=== PATIENT | female | born 1960 | race Caucasian/White ===

== ENCOUNTER 2017-04-23 10:46 | Outpatient (CLI) | payer OTHER ==
--- NOTE | 2017-04-23 18:27 | MRI Report ---
EXAM: RIGHT KNEE MRI WITHOUT CONTRAST EXAM DATE: 04/23/2017 12:11 PM. CLINICAL HISTORY: SYNOVIAL CYST OF POPLITEAL SPACE (REED), RIGHT knee. COMPARISON: MR 10/10/2012. TECHNIQUE: Multiplanar, multisequence T1-weighted and fluid-sensitive sequences of the knee without c ontrast. Other: None. FINDINGS: Bones: Moderate osteophytes in all 3 compartments, unchanged. No fracture. Mild degenerative marrow e michele and subarticular cyst formation in the medial and lateral compartments. 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 Articular Cartilage: Grade 3 chondromalacia medial and lateral compartments has progressed since 2011 . Grade 4 chondromalacia patella, stable. Medial Meniscus: Partial degeneration posterior horn, stable. No displaced fragment. Lateral Meniscus: The lateral meniscus is intact. Cruciate Ligaments: The anterior and posterior cruciate ligaments are intact. Collateral Ligaments: The medial collateral and lateral collateral ligamentous structures are intact. Tendons: The quadriceps, patellar, semimembranosus, and popliteus tendons are unremarkable. Musculature: No edema or fatty atrophy. Other: Small joint effusion, stable. 1 x 4 cm small popliteal fossa cyst. No loose bodies. The media l and lateral retinacula are intact. Mild soft tissue edema. IMPRESSION: 1. Interval progression moderate 3 compartment degenerative joint disease. 2. Stable small 1 x 4 cm popliteal fossa cyst. [facility] MUSCULOSKELETAL RADIOLOGY SECTION Referring Provider Line: [phone] SITE ID: [id number]
== END 2017-04-23 10:47 | disposition home or self-care (01) ==
LOC: DI 10:46
PROVIDERS: ATTEND Nurse Practitioner Family
DX: M17.11 Unilateral primary osteoarthritis, right knee (principal); M71.21 Synovial cyst of popliteal space [Baker], right knee

== ENCOUNTER 2019-05-05 11:09 | Outpatient (CLI) | payer OTHER | END 2019-05-05 11:10 | disposition short-term general hospital (02) | LOC: EMS 11:09 | PROVIDERS: ATTEND Surgery | DX: R55 Syncope and collapse (principal); R42 Dizziness and giddiness; R20.0 Anesthesia of skin; R53.1 Weakness | CPT/HCPCS: A0425; A0429 ==

== ENCOUNTER 2020-02-27 09:09 | Outpatient (CLI) | payer OTHER ==
--- NOTE | 2020-02-27 14:54 | MRI Report ---
Reason: ABDOMEN PAIN Procedure Date: 02/27/2020 Accession Number: [id number] / [id number] Procedure: MRI - Lumbar Spine W/O CPT Code: Final Report FULL RESULT: EXAM: MRI LUMBAR SPINE WITHOUT CONTRAST EXAM DATE: 02/27/2020 10:45 AM. CLINICAL HISTORY: Low back pain. Pain from the lower right back to the anterior right lower quadrant exacerbated with bending. COMPARISON: None. TECHNIQUE: Multiplanar, multisequence T1-weighted and fluid-sensitive sequences of the lumbar spine from T12 to S1 without contrast. Other: None. FINDINGS: Spinal Canal: The conus terminates at T12-L1. The conus medullaris and cauda equina are unremarkable. Alignment: 7 mm anterior subluxation L4 on L5. Otherwise normal alignment. Approximately 17 degrees curvature convex right between L1 and L5. Bone Marrow: No acute fracture. Diskogenic endplate edema is most pronounced at the T11-T12 level, slightly less pronounced at L2-L3 and L5-S1. Predominantly fatty endplate changes at T10-T11. No destructive bone lesion. Disk Levels/Facets: T12-L1: Minimal disk bulge. No stenosis. L1-L2: Minimal disk bulge. No stenosis. L2-L3: Moderate disk height loss and dehydration. Annular disk bulge with broad-based foraminal protrusions and mild degenerative facet arthropathy. Mild bilateral inferior foraminal narrowing. L3-L4: Slight annular disk bulge and moderate degenerative facet arthropathy. No significant stenosis. L4-L5: Grade 1 degenerative spondylolisthesis. Annular disk bulge and uncovering of the disk. Moderate to severe bilateral degenerative facet arthropathy with ligamentum flavum buckling. Mild central canal stenosis. Mild left foraminal stenosis. L5-S1: Mild disk height loss and dehydration. Slight annular disk bulge. Mild degenerative facet arthropathy. Mild right foraminal narrowing. No significant stenosis. Musculature: Normal. No edema or fatty atrophy. Other: 1.3 cm high T2, mixed T1 signal lesion in the anterolateral left kidney may represent a hemorrhagic cyst. Partially visualized lower pole cyst 3.2 cm diameter. IMPRESSION: 1. L4-L5 grade 1 degenerative spondylolisthesis. Mild central canal stenosis and mild left foraminal stenosis. 2. Mild to moderate multilevel degenerative disk and facet arthropathy with no additional significant canal or foraminal stenosis. Comment: The following findings are so common in adults without low back pain that while we report their presence, they must be interpreted with caution and in the context of the clinical situation. (Reference Dawsonk et al, Spine 2001) Prevalence of findings in patients without low back pain: Disk degeneration (any evidence): 92% Disk desiccation/T2 signal loss: 83% Disk height loss: 56% Disk bulge: 64% Disk protrusion: 32% Annular tear/high intensity zone: 38% [facility]
--- NOTE | 2020-02-27 16:44 | MRI Report ---
Reason: ABDOMEN PAIN Procedure Date: 02/27/2020 Accession Number: [id number] / [id number] Procedure: MRI - Pelvis W/O CPT Code: Final Report FULL RESULT: EXAM: MRI PELVIS WITHOUT CONTRAST EXAM DATE: 02/27/2020 10:13 AM. CLINICAL HISTORY: Abdominal pain since 08/18/2019 that moves from the anterior right lower quadrant to the right back. COMPARISON: None. TECHNIQUE: Multiplanar, multisequence T1-weighted and fluid-sensitive sequences of the pelvis without contrast. Other: None. FINDINGS: Bones: No fractures or subluxations. No marrow edema or bone lesions. Sacroiliac Joints: No effusion or sacroiliitis. Right Hip: No acetabular retroversion. Femoral head-neck offset is within normal limits. No effusion. Left Hip: No acetabular retroversion. Femoral head-neck offset is within normal limits. No effusion. Symphysis Pubis: Unremarkable. Musculature: No edema or fatty atrophy. Pelvic Cavity: Normal uterus. Atrophic ovaries. Negative for abnormal adnexal mass. Bladder is negative for focal mass. Extensive sigmoid diverticulosis with no MR evidence for diverticulitis. Other: The visualized sciatic nerves are unremarkable. No bursitis. The subcutaneous tissues are unremarkable. Hips are within normal limits. Proximal hamstring tendons are normal. Negative for ischial femoral impingement. Trace fluid left subgluteal gluteus medius bursa. Lower spine: Anterolisthesis 5 mm L4 on L5. Moderate disk degeneration L4-L5. Severe L4-L5 facet hypertrophic arthropathy. Posterior 2 mm disk protrusion L4-L5 with mild central spinal canal stenosis. Mild left L4-L5 foraminal stenosis. IMPRESSION: Unremarkable MRI of low abdomen and pelvis. [facility]
== END 2020-02-27 09:10 | disposition home or self-care (01) ==
LOC: DI 09:09
PROVIDERS: ATTEND Family Medicine
DX: M51.36 Other intervertebral disc degeneration, lumbar region (principal); M47.816 Spondylosis without myelopathy or radiculopathy, lumbar region; M47.817 Spondylosis without myelopathy or radiculopathy, lumbosacral region; M51.37 Other intervertebral disc degeneration, lumbosacral region; M51.26 Other intervertebral disc displacement, lumbar region; M43.16 Spondylolisthesis, lumbar region
CPT/HCPCS: 72148; 72195

== ENCOUNTER 2023-02-04 19:50 | Emergency (ER) | payer OTHER ==
[2023-02-04 20:47] LABS: BASOPHILS % (AUTO) 0.1 %; EOSINOPHILS # (AUTO) 0.1 10^3/uL (0.0-0.7); EOSINOPHILS % (AUTO) 1.9 %; HCT - HEMATOCRIT 37.3 % (37.0-47.0); HGB - HEMOGLOBIN 12.8 g/dL (12.0-16.0); LYMPHOCYTES # (AUTO) 2.1 10^3/uL (1.5-3.5); LYMPHOCYTES % (AUTO) 30.4 %; MEAN CORPUSCULAR HEMOGLOBIN 31.8 pg (27.0-31.0); MEAN CORPUSCULAR HGB CONC 34.3 g/dL (32.0-36.0); MEAN CORPUSCULAR VOLUME 92.6 fL (81.0-99.0); MEAN PLATELET VOLUME 8.9 fL (7.9-10.8); MONOCYTES # (AUTO) 0.5 10^3/uL (0.0-1.0); MONOCYTES % (AUTO) 7.1 %; NEUTROPHILS # (AUTO) 4.1 10^3/uL (1.5-6.6); NEUTROPHILS % (AUTO) 60.2 %; PLT - PLATELET COUNT 232 10^3/uL (130-450); RED BLOOD COUNT 4.03 10^6/uL (4.20-5.40); RED CELL DISTRIBUTION WIDTH 11.8 % (12.0-15.0); WHITE BLOOD COUNT 6.8 x10^3/uL (4.8-10.8)
--- NOTE | 2023-02-04 20:49 | XRAY Report ---
PROCEDURE: Chest 1 View X-Ray INDICATIONS: Chest Pain TECHNIQUE: One view of the chest was acquired. COMPARISON: None. FINDINGS: Surgical changes and devices: None. Lungs and pleura: No pleural effusions or pneumothorax. Lungs are clear. Mediastinum: The aorta is prominent and tortuous. The cardiac contours are within normal limits. Bones and chest wall: No suspicious bony lesions. Age-appropriate degenerative changes are seen. O verlying soft tissues appear unremarkable. IMPRESSION: Portable chest within normal limits for age. Reviewed by: Yossi Guardado MD on 02/04/2023 7:48 PM [facility] Approved by: Yossi Guardado MD on 02/04/2023 7:48 PM [facility] Station ID: [id number]
--- NOTE | 2023-02-04 21:00 | ED Physician Documentation ---
History of Present Illness - Stated complaint Stated Complaint: ALLERGIC REACTION - Chief complaint Chief Complaint: Allergic Rx - Additonal information Additional information: 62-year-old female presents to the emergency department for concerns that she may be having an allergic reaction to the Flonase that she took this afternoon for eustachian tube dysfunction. She reports that for many months she has been having difficulty with her e ustachian tubes and has had vertigo associated with this. On the advice of her primary care provider she took a Zyrtec this morning about 10:00 and this afternoon to use the Flonase nasal spray. Shortly thereafter she began feeling lightheaded. She denies chest pain or shortness of air. She took her blood pressure at home and found it was 146/105. Reports this is very high for her as she typically runs in the low 100s. The patient is on metoprolol due to a history of ventricular tachycardia. She denies however a history of hypertension preceding. She does state that she often has bad side effects to medications. She does not present with findings of anaphylaxis, angioedema or hives. She is cardiovascularly stable. Review of Systems Constitutional: denies: Fever, Chills Ears: reports: Tinnitus/ringing Nose: reports: Congestion Throat: reports: Reviewed and negative Cardiac: denies: Chest pain / pressure, Palpitations Respiratory: denies: Dyspnea, Cough GI: reports: Reviewed and negative : reports: Reviewed and negative Skin: reports: Reviewed and negative Musculoskeletal: reports: Reviewed and negative PD PAST MEDICAL HISTORY - Allergies Allergies/Adverse Reactions: Allergies Allergy/AdvReac Type Severity Reaction Status Date / Time Penicillins Allergy Hives Verified 02/04/23 20:04 sulfamethoxazole Allergy Unknown Verified 02/04/23 20:04 [From ] trimethoprim [From ] Allergy Unknown Verified 02/04/23 20:04 PD ED PE NORMAL - General General: Alert and oriented X 3, No acute distress - HEENT HEENT: PERRL - Neck Neck: Supple, no meningeal sign, No adenopathy - Cardiac Cardiac: RRR, No murmur - Respiratory Respiratory: No respiratory distress, Clear bilaterally - Abdomen Abdomen: Normal bowel sounds, Soft, Non tender - Derm Derm: Normal color, Warm and dry - Extremities Extremities: No deformity - Neuro Neuro: Alert and oriented X 3, 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 Relevant findings are: Rate: Rate (enter#) (70) Rhythm: NSR [place]: Normal Intervals: Normal AL. No: Prolonged QT QRS: Normal Ischemia: Normal ST segments Compare to prior EKG: Old EKG unavailable Computer interpretation: Agree with computer - Labs Labs: Laboratory Tests 02/04/23 02/04/23 20:45 20:45 WBC 6.8 RBC 4.03 L Hgb 12.8 Hct 37.3 MCV 92.6 MCH 31.8 H MCHC 34.3 RDW 11.8 L Plt Count 232 MPV 8.9 Neut # (Auto) 4.1 Lymph # (Auto) 2.1 [place] # (Auto) 0.5 Eos # (Auto) 0.1 Baso # (Auto) 0.0 Absolute Nucleated RBC 0.00 Nucleated RBC % 0.0 Sodium 134 L Potassium 3.5 Chloride 102 Carbon Dioxide 24 Anion Gap 8.0 BUN 21 H Creatinine 0.8 Estimated GFR (MDRD) 72 L Glucose 97 Calcium 8.7 Total Bilirubin 0.6 AST 18 ALT 21 Alkaline Phosphatase 77 Total Protein 7.1 Albumin 4.0 Globulin 3.1 Albumin/Globulin Ratio 1.3 Lipase 40 - Rads (name of study) cxr Relevant Findings:: Final report received (no acute cardiopulmonary process) PD Medical Decision Making - ED course Complexity details: reviewed results, re-evaluated patient, considered differential, d/w patient ED course: 62-year-old female presents emergency department for evaluation of elevated blood pressure and feeling lightheaded after taking Flonase nasal spray which she was being taken for eustachian tube dysfunction. She is concerned because she never has blood pressure elevations that she did at home today. She denies chest pain and shortness of air. In the emergency department she appears remarkably well. Her EKG per my interpretation is nonischemic. Chest x-ray was without findings to suggest volume overload, cardiomegaly or pneumonia/pleural effusions. Her screening labs and electrolytes showed no acute worrisome findings though her BUN was mildly elevated. In addition to this her troponin had a very scant elevation at 18. With the finding of a mild BUN elevation we elected to give the patient a liter of IV fluids and recheck her troponin at 2300. Assuming no significant rise in the troponin I do not believe that this elevation is consistent with ACS and she will be stable for discharge home. She is to follow closely with her stoker installer as she may benefit from an outpatient echocardiogram and stress test. She reports an unremarkable one a few years ago. Clinically I do not believe that she is having an allergic reaction to the Zyrtec or Flonase. She was advised that she can take the Zyrtec tomorrow and if no adverse events attempt to take the Flonase the following day if again she has similar symptoms she will stop taking the Flonase. She may benefit from saline Nasal spray Patient will be signed out to my nighttime colleague Dr. Billings to follow-up on the 2300 troponin. Assuming no significant rise she was stable for discharge home Departure - Departure Clinical Impression: Elevated blood pressure reading without diagnosis of hypertension, Elevated troponin Condition: Stable Record reviewed to determine appropriate education?: Yes Comments: You came to the emergency department because you have concerns that you are having allergic reaction to the Flonase which she took noon for your eustachian tube dysfunction. The symptoms you discussed are not typical for an allergic reaction though they could be. Here in the emergency department we did obtain a chest x-ray which was normal for age. It showed no findings of pneumonia or volume overload. Your CBC and electrolytes also showed no worrisome findings. Your EKG was normal for age and did not show signs of having a heart attack. You do have an elevated blood pressure here in the emergency department. This may be secondary to stress anxiety or worry. I would recommend that you follow your blood pressures closely at home and discuss your concern of elevated blood pressures with your primary care doctor. We did noticed today that he had a mildly elevated troponin. This is a chemical that can be released by the heart during times of stress but it is also elevated in other conditions. Your EKG was normal and the elevation in your troponins did not make us worry about heart disease. However I would like you to discuss this ED visit as well as your mildly elevated troponins with your stoker installer at [facility]. They may elect to perform a second stress test. If at any point you develop chest pain having fainting episodes or severely short of air you should return immediately to the ER I think is okay to try taking the Zyrtec tomorrow. If you tolerate that well without any concerns of adverse reaction then the next day you can try the Zyrtec followed by the Flonase. If you have similar symptoms then I would discontinue further use of Flonase until you follow with your primary doctor. Saline nasal rinses can be helpful in reducing eustachian tube dysfunction and I would recommend this if you find you do not tolerate Flonase
[2023-02-04 21:06] LABS: ALBUMIN/GLOBULIN RATIO 1.3 (1.0-2.2); BILIRUBIN,TOTAL 0.6 mg/dL (0.2-1.0); CALCIUM 8.7 mg/dL (8.5-10.3); CREATININE 0.8 mg/dL (0.4-1.0); POTASSIUM 3.5 mmol/L (3.5-5.0); TOTAL PROTEIN 7.1 g/dL (6.7-8.2)
[2023-02-04] MEDS ORDERED: SODIUM CHLORIDE 0.9% 1,000 ML IV STA (21:36)
[2023-02-05 01:14] VITALS: BP 126/85
== END 2023-02-05 01:10 | disposition home or self-care (01) ==
LOC: ED 19:50
DX: R77.8 Other specified abnormalities of plasma proteins (principal); R03.0 Elevated blood-pressure reading, without diagnosis of hypertension; Z79.899 Other long term (current) drug therapy
CPT/HCPCS: 36415; 80053; 83690; 84484; 85025; 93005; 99283; 99284

== ENCOUNTER 2023-09-29 21:20 | Observation (INO) | payer OTHER ==
[2023-09-29 21:50] LABS: BASOPHILS % (AUTO) 0.1 %; EOSINOPHILS % (AUTO) 0.1 %; HCT - HEMATOCRIT 40.8 % (37.0-47.0); HGB - HEMOGLOBIN 13.6 g/dL (12.0-16.0); LYMPHOCYTES # (AUTO) 1.2 10^3/uL (1.5-3.5); LYMPHOCYTES % (AUTO) 17.3 %; MEAN CORPUSCULAR HEMOGLOBIN 30.6 pg (27.0-31.0); MEAN CORPUSCULAR HGB CONC 33.3 g/dL (32.0-36.0); MEAN CORPUSCULAR VOLUME 91.9 fL (81.0-99.0); MEAN PLATELET VOLUME 8.6 fL (7.9-10.8); MONOCYTES # (AUTO) 0.8 10^3/uL (0.0-1.0); NEUTROPHILS # (AUTO) 4.7 10^3/uL (1.5-6.6); NEUTROPHILS % (AUTO) 70.4 %; PLT - PLATELET COUNT 222 10^3/uL (130-450); RED BLOOD COUNT 4.44 10^6/uL (4.20-5.40); RED CELL DISTRIBUTION WIDTH 11.9 % (12.0-15.0); WHITE BLOOD COUNT 6.8 x10^3/uL (4.8-10.8)
[2023-09-29 22:05] LABS: ALBUMIN 4.6 g/dL (3.2-5.5); ALBUMIN/GLOBULIN RATIO 1.6 (1.0-2.2); BILIRUBIN,TOTAL 0.6 mg/dL (0.2-1.0); CALCIUM 9.6 mg/dL (8.5-10.3); CREATININE 0.7 mg/dL (0.6-1.3); POTASSIUM 3.8 mmol/L (3.5-4.5); TOTAL PROTEIN 7.5 g/dL (6.4-8.9)
[2023-09-29 22:16] LABS: TROPONIN I HIGH SENSITIVITY 23.7 ng/L (2.3-14.8)
--- NOTE | 2023-09-29 22:18 | XRAY Report ---
PROCEDURE: Chest 1 View X-Ray INDICATIONS: Chest pain TECHNIQUE: One view of the chest was acquired. COMPARISON: DEXA 02/04/2023. FINDINGS: Surgical changes and devices: None. Lungs and pleura: No pleural effusions or pneumothorax. Lungs are clear. Mediastinum: Mediastinal contours appear normal. Heart size is normal. Bones and chest wall: No suspicious bony lesions. Overlying soft tissues appear unremarkable. IMPRESSION: No acute cardiopulmonary process. Reviewed by: Shamir Jefferson MD on 09/29/2023 10:17 PM PST Approved by: Shamir Jefferson MD on 09/29/2023 10:17 PM [facility] Station ID: [id number]
[2023-09-29 22:22] LABS: PHOSPHORUS 2.8 mg/dL (2.5-5.0)
--- NOTE | 2023-09-29 22:27 | ED Physician Documentation ---
History of Present Illness - Stated complaint Stated Complaint: HIGH HEART RATE - Chief complaint Chief Complaint: Cardiac - History obtained from History obtained from: Patient, Family - History of Present Illness Timing: Today Pain level max: 0 Pain level now: 0 - Additonal information Additional information: Patient is a 62-year-old female who presents to the emergency department complaining of palpitations today. She states she felt mildly lightheaded as well. She states that she has had a full cardiac workup and was told that she has nonsustained ventricular tachycardia. She usually does not have symptoms with this. No fevers. No chills. She states she feels like she is having more GERD than usual and is belching more than usual. Her patient care specialist is at [facility]. She states that she takes metoprolol 12.5 mg p.o. twice daily, it is the extended release version. Review of Systems Constitutional: denies: Fever, Chills GI: denies: Nausea, Vomiting, Diarrhea PD PAST MEDICAL HISTORY - Past Medical History Past Medical History: Yes GI: GERD Other Past Medical History: Nonsustained ventricular tachycardia - Allergies Allergies/Adverse Reactions: Allergies Allergy/AdvReac Type Severity Reaction Status Date / Time Penicillins Allergy Hives Verified 09/29/23 21:32 sulfamethoxazole Allergy Unknown Verified 09/29/23 21:32 [From ] trimethoprim [From ] Allergy Unknown Verified 09/29/23 21:32 - Living Situation Living Situation: reports: With family Living Arrangement: reports: At home PD ED PE NORMAL - Vitals Vital signs reviewed: Yes - General General: Alert and oriented X 3, No acute distress - HEENT HEENT: Moist mucous membranes - Neck Neck: Supple, no meningeal sign - Cardiac Cardiac: RRR, No murmur, Strong equal pulses - Respiratory Respiratory: No respiratory distress, Clear bilaterally - Abdomen Abdomen: Soft, Non tender, Non distended - Derm Derm: Warm and dry - Extremities Extremities: No edema, No calf tenderness / cord - Neuro Neuro: Alert and oriented X 3 - Psych Psych: Normal mood, Normal affect Results - Vitals Vitals: Vital Signs - 24 hr 09/29/23 09/29/23 21:24 22:11 Temperature 36.9 C Heart Rate 86 87 Respiratory 18 12 Rate Blood Pressure 150/78 H 149/97 H O2 Saturation 98 98 Oxygen O2 Source Room air - EKG (time done) 2139 EKG releavant findings:: EKG personally interpreted by author of this note. Relevant findings are: Rate: Rate (enter#) (80) Rhythm: NSR [place]: Normal Intervals: Normal [place] QRS: Normal Ischemia: Normal ST segments - Labs Labs: Laboratory Tests 09/29/23 09/29/23 09/29/23 21:43 21:43 21:43 WBC 6.8 RBC 4.44 Hgb 13.6 Hct 40.8 MCV 91.9 MCH 30.6 MCHC 33.3 RDW 11.9 L Plt Count 222 MPV 8.6 Neut # (Auto) 4.7 Lymph # (Auto) 1.2 L [place] # (Auto) 0.8 Eos # (Auto) 0.0 Baso # (Auto) 0.0 Absolute Nucleated RBC 0.00 Nucleated RBC % 0.0 Sodium 131 L Potassium 3.8 Chloride 101 Carbon Dioxide 22 Anion Gap 8.0 BUN 10 Creatinine 0.7 Estimated GFR (MDRD) 85 L Glucose 105 H Calcium 9.6 Phosphorus 2.8 Magnesium 2.0 Total Bilirubin 0.6 AST 17 ALT 16 Alkaline Phosphatase 80 Troponin I High Sens 23.7 H* Total Protein 7.5 Albumin 4.6 Globulin 2.9 Albumin/Globulin Ratio 1.6 Lipase 27 - Rads (name of study) cxr Relevant Findings:: Final report received, See rad report PD Medical Decision Making - ED course Complexity details: reviewed results, re-evaluated patient, considered differential, d/w patient, d/w quantitative consultant (Dr. Montemayor) ED course: Patient is a 62-year-old female with a history of nonsustained ventricular tachycardia complaining of palpitations at night. No chest pain or shortness of breath. Her high sensitive troponin is mildly elevated but that is consistent with her prior emergency department visits. She did have multiple runs of nonsustained ventricular tachycardia here. Given IV magnesium and metoprolol, the nonsustained ventricular tachycardia episodes did decrease in frequency. I spoke with Dr. Montemayor, cardiology at [facility] on-call for her patient care specialist. He states that he recommends increasing metoprolol to 25 mg p.o. twice daily of the extended release metoprolol. He states she has had a full normal cardiac workup including MRI, echocardiogram and stress test. She met with the EP physician in July. He states that if she continues to have nonsustained ventricular tachycardia overnight, continues to be symptomatic, then call for transfer. Patient is comfortable staying here tonight. I discussed the case with Dr. Krause, hospitalist who accepts. This document was made in part using voice recognition software. While efforts are made to proofread this document, sound alike and grammatical errors may occur. Departure - Departure Disposition: ED Place in Observation Clinical Impression: Ventricular tachycardia Condition: Stable Forms: PCP List
[2023-09-29] MEDS ORDERED: MAGNESIUM SULFATE 2 GRAM 2 GM/50 ML BAG IV ONE (22:37)
[2023-09-29] MEDS ORDERED: SODIUM CHLORIDE 0.9% 1,000 ML IV STA (22:37)
[2023-09-29] MEDS ORDERED: METOPROLOL 5 MG/5 ML VIAL IVP STA (22:37)
--- NOTE | 2023-09-29 23:04 | HISTORY & PHYSICAL EXAMINATION ---
History of Present Illness - Admitted From Admitted From:: ER - History Obtained From Records Reviewed: Yes History obtained from: Patient, staff, chart Exam Limitations: Virtual exam - History of Present Illness HPI Comment/Other: 62 yo F with PMH of Nonsustained Ventricular Tachycardia, GERD presented to the ER with c/o 1 day h/o palpitations, dizziness. Pt has had increased indigestion symptoms x 2 weeks with belching/gas after eating and palpitations with these symptoms. She saw her PCP on Tuesday and they prescribed Omeprazole, but pt would rather take Tums and has been managing her symptoms with Tums PRN. Today, she also had coryza and low-grade fever. Then, she began to have increased frequency and severity with palpitations, accompanied by dizziness/light-headedness/feeling like she might faint if she did not sit down. +chest "heaviness" with palpitations today. No SOB. She has not had dizziness with previous episodes of VTach. The first time she was diagnosed with VTach was when she was wearing a heart monitor; it was picked up and she was asymptomatic. Pt's Mechanical Tech is at [facility]. She takes Metoprolol XR 12.5 mg PO BID. Pt has had a full normal cardiac workup including MRI, echocardiogram and stress test. She met with the EP physician in July and no intervention was planned. No N/V/D/Dysuria/cough. In the ER, pt has had multiple runs of nonsustained ventricular tachycardia, each 3-5 beats, BP 150/78, HR 86, Na 131, Trop 23.7 EKG: NSR at 80bpm, no STTw changes CXR: NAD Pt was given MagSO4 2 gm IV, Metoprolol 5 mg IV and IVF in the ER. ER Physician D/W with Dr. Montemayor, Mechanical Tech at [facility], on-call for her Mechanical Tech; he recommended increasing Metoprolol to 25 mg p.o. BID and admit for Obs. If she continues to have nonsustained ventricular tachycardia overnight, continues to be symptomatic, then call for transfer. Meds/Allgy - Allergies Allergies/Adverse Reactions: Allergies Allergy/AdvReac Type Severity Reaction Status Date / Time Penicillins Allergy Hives Verified 09/29/23 21:32 sulfamethoxazole Allergy Unknown Verified 09/29/23 21:32 [From ] trimethoprim [From ] Allergy Unknown Verified 09/29/23 21:32 Review of Systems - All Other Systems All Other Systems: reports: Reviewed and negative Exam - Vital Signs Reviewed Vital Signs: Yes Vital Signs: Vital Signs x48h Temp Pulse Resp BP Pulse Ox 09/29/23 22:11 87 12 149/97 H 98 09/29/23 21:24 36.9 C 86 18 150/78 H 98 - Physical Exam General Appearance: positive: No acute distress, Alert Eyes Bilateral: positive: EOMI, No scleral icterus Respiratory: positive: Other (Access cart stethoscope not working; per ER Provider: CTA B/L) Cardiovascular: positive: Other (Access cart stethoscope not working; per ER Provider: RRR, no murmurs) Abdomen: positive: Other ( per ER Provider: non-distended, NT, Soft) Extremities: positive: Other (per ER Provider: moves all extrem, no edema) Neurologic/Psychiatric: positive: Oriented x3, CN's nml (2-12), Mood/affect nml Conclusion/Plan - Problem List (1) Ventricular tachycardia Conclusion/Plan: Ventricular Tachycardia, non-sustained Palpitations Dizziness Elevated Troponins -pt has had multiple runs of nonsustained ventricular tachycardia, each 3-5 beats, BP 150/78, HR 86 -Trop 23.7; Trop 20.3 in ER in 01/2023 -EKG: NSR at 80bpm, no STTw changes -CXR: NAD -Pt was given MagSO4 2 gm IV, Metoprolol 5 mg IV and IVF in the ER. -ER Physician D/W with Dr. Montemayor, Mechanical Tech at [facility], on-call for her Mechanical Tech; he recommended increasing Metoprolol to 25 mg p.o. BID and admit for Obs. If she continues to have nonsustained ventricular tachycardia o vernight, continues to be symptomatic, then call for transfer. -admit to Med tele -continue to trend Trop -check TSH -increase home medications: Metoprolol XR to 25 mg PO BID; D/W pt and she is agreeable. Hyponatremia -Na 131 -continue IVF Indigestion -pt requests Tums PRN only for this; does not want other meds Coryza -supportive care VTE Prophylaxis: Lovenox SQ Code Status: Full Code ~Sandra Krause MD Hospitalist - Lab Results Fish Bones: 09/29/23 21:43 09/29/23 21:43
[2023-09-29] MEDS ORDERED: ONDANSETRON 4 MG/2 ML VIAL IVP PRN (23:11)
[2023-09-29] MEDS ORDERED: ACETAMINOPHEN 325 MG TABLET PO PRN (23:11)
[2023-09-29] MEDS ORDERED: ONDANSETRON ODT 4 MG TABLET TL PRN (23:11)
[2023-09-29] MEDS ORDERED: SODIUM CHLORIDE FLUSH 0.9% 10 ML SYRINGE IVP PRN (23:11)
[2023-09-29] MEDS ORDERED: SODIUM CHLORIDE 0.9% 1,000 ML IV SCH (23:45)
[2023-09-29] MEDS ORDERED: METOPROLOL TARTRATE 50 MG TABLET PO SCH (23:45)
[2023-09-30] MEDS: CALCIUM CARBONATE CHEW 500 MG TABLET PO PRN (01:04)
[2023-09-30] MEDS: METOPROLOL SUCCINATE 25 MG TABLET PO SCH ×3 (02:09→20:57)
[2023-09-30] MEDS: SODIUM CHLORIDE FLUSH 0.9% 10 ML SYRINGE IVP SCH ×4 (02:10→23:52)
[2023-09-30] MEDS ORDERED: NITROGLYCERIN SL 0.4 MG TABLET SL PRN (04:08)
[2023-09-30 06:08] LABS: CALCIUM 10.1 mg/dL (8.5-10.3); CREATININE 0.7 mg/dL (0.6-1.3); MAGNESIUM 2.3 mg/dL (1.7-2.3); POTASSIUM 4.1 mmol/L (3.5-4.5)
[2023-09-30 06:15] LABS: THYROID STIMULATING HORMONE 0.77 uIU/mL (0.34-5.60)
[2023-09-30] MEDS ORDERED: SODIUM CHLORIDE 0.9% 1,000 ML IV SCH (08:16)
[2023-09-30] MEDS: ENOXAPARIN 40 MG/0.4 ML SYRINGE SUBQ SCH (09:08)
[2023-09-30 11:40] LABS: B. PARAPERTUSSIS- RESP PCR PAN NOT DETECTED; B. PERTUSSIS- RESP PCR PANEL NOT DETECTED; C. PNEUMONIAE- RESP PCR PANEL NOT DETECTED; CORONAVIRUS 229E-RESP PCR NOT DETECTED; CORONAVIRUS HKU1-RESP PCR NOT DETECTED; CORONAVIRUS NL63-RESP PCR NOT DETECTED; CORONAVIRUS OC43-RESP PCR NOT DETECTED; HUMAN METAPNEUMOVIRUS NOT DETECTED; INFLUENZA A- RESP PCR PANEL NOT DETECTED; INFLUENZA B - RESP PCR PANEL NOT DETECTED; M. PNEUMONIAE- RESP PCR PANEL NOT DETECTED; PARAINFLUENZA VIRUS 1 NOT DETECTED; PARAINFLUENZA VIRUS 2 NOT DETECTED; PARAINFLUENZA VIRUS 3 NOT DETECTED; PARAINFLUENZA VIRUS 4 NOT DETECTED; RHINOVIRUS/ENTEROVIRUS NOT DETECTED; RSV- RESP PCR PANEL NOT DETECTED
[2023-09-30 11:42] LABS: SARS-CoV-2 -RESP PCR PANEL DETECTED
[2023-09-30] MEDS ORDERED: SODIUM CHLORIDE 0.9% 500 ML IV ONE (11:45)
--- NOTE | 2023-09-30 14:00 | PROVIDER PROGRESS NOTE ---
Assessment/Plan - Problem List (1) Ventricular tachycardia Assessment/Plan: She describes feeling palpitations with dizziness that she has not had before when she got palpitations. Short bursts of V. tach as well as bigeminy, trigeminy, quadrigeminy have been seen here on telem Orthostatic check was done because of her complaint of dizziness and she is orthostatic. Therefore I ordered a saline 500 cc bolus. After that she still feels these "palpitations", but says they are not as severe as yesterday, p ossibly because she has been re-hydrated. Her troponins were flat ruling out an acute CT The information we got was that she had a normal Echo, stress test and cardiac work-up just recently, saw an Cardiac Field Radio Operator just 2 months ago. Her TSH came back WNL at 0.77 Plan: No indication to repeat an Echo or stress test. Yesterday our ER Physician D/W with Dr. Montemayor, Insurance Producer at [facility], on-call for her Insurance Producer Dr Patel; he recommended increasing Metoprolol to 25 mg p.o. BID which was done and admit for Observation, and advised if she continues to have nonsustained ventricular tachycardia overnight, continues to be symptomatic, then call for transfer. However, I feel that her orthostasis and new COVID infection could be causing the dizziness and making her symptomatic and that the COVID may be causing the PVCs, making the heart more irritable She will remain in Observation on telemetry and will continue giving gentle IV fluids and assess what happens by tomorrow morning. The patient agrees with this plan. (2) COVID-19 Because of the coryza, abdominal queasiness and low-grade fever at home, I ordered a respiratory panel today. It came back positive for COVID. The patient says she has had COVID 5-7 time before Plan: Place in droplet infectious isolation. She has no pneumonia on chest x-ray and no desaturation, so she does not qualify for Remdesivir. I will order Afrin spray prn for her coryza (3) Hyponatremia Na 131 at admission and is 137 today. All labs were reviewed. I suspect this was hypovolemic hyponatremia given the fever and viral infection Plan: Continue but decrease rate of her IVF (4) Indigestion I suspect this is another symptom of her current COVID infection. Plan: Pt requests Tums PRN only for this; does not want other meds - Current Meds Current Meds: Current Medications Generic Name Dose Route Start Last Admin Trade Name Bakari PRN Reason Stop Dose Admin Calcium Carbonate/Glycine 500 mg 09/29/23 23:14 09/30/23 01:04 Calcium Carbonate Chew 500 Mg Tablet PO 500 mg Q6H PRN Administration INDIGESTION Enoxaparin Sodium 40 mg 09/30/23 09:00 09/30/23 09:08 Enoxaparin 40 Mg/0.4 Ml Syringe SUBQ 40 mg DAILY SIMÓN Administration Metoprolol Succinate 25 mg 09/29/23 23:45 09/30/23 09:08 Metoprolol Succinate 25 Mg Tablet PO 25 mg BID SIMÓN Administration Sodium Chloride 10 ml 09/30/23 01:00 09/30/23 10:03 Sodium Chloride Flush 0.9% 10 Ml Syringe IVP Not Given 0100,0900,1700 SIMÓN - Lab Result Fish Bone Diagrams: 09/29/23 21:43 09/30/23 05:10 - Additional Planning My Orders: My Active Orders 09/30/23 08:13 Orthostatic [Vital Signs - Orthostatic] [RC] QSHIFT 09/30/23 08:16 Sodium Chloride 0.9% [Normal Saline 0.9%] 1,000 ml IV TKO Subjective - Subjective Patient Reports: Other (Still feeling palpitations but they do not is "strong". Still feeling dizzy but not as severe. Still has abdominal queasiness/pain) Objective Vital Signs: Vital Signs - 24 hr 09/29/23 09/29/23 09/30/23 21:24 22:11 00:00 Temperature 36.9 C 37.0 C Heart Rate 86 87 Heart Rate [ 86 Monitoring electrodes] Respiratory 18 12 20 Rate Blood Pressure 150/78 H 149/97 H Blood Pressure 142/71 H [Left Brachial artery] O2 Saturation 98 98 99 09/30/23 09/30/23 09/30/23 01:56 02:51 05:10 Temperature 36.7 C Heart Rate Heart Rate [ 78 73 Monitoring electrodes] Respiratory 16 Rate Blood Pressure Blood Pressure 122/54 L 115/68 [Left Brachial artery] O2 Saturation 98 09/30/23 08:00 Temperature 36.8 C Heart Rate Heart Rate [ 86 Monitoring electrodes] Respiratory 16 Rate Blood Pressure Blood Pressure 146/66 H [Left Brachial artery] O2 Saturation 96 Oxygen O2 Source Room air I&O (Last 24 Hrs): Intake and Output Totals x24h 09/28/23 09/29/23 09/30/23 23:59 23:59 23:59 Intake Total 690 Balance 690 General: Alert, Oriented x3 HEENT: Other (Nasal congestion) Neck: Supple Neuro: Alert, Non Focal Cardiovascular: Regular rate Respiratory: No respiratory distress Extremities: No clubbing, No edema - Results Results: Laboratory Results WBC 6.8 x10^3/uL (4.8-10.8) 09/29/23 21:43 RBC 4.44 10^6/uL (4.20-5.40) 09/29/23 21:43 Hgb 13.6 g/dL (12.0-16.0) 09/29/23 21:43 Hct 40.8 % (37.0-47.0) 09/29/23 21:43 MCV 91.9 fL (81.0-99.0) 09/29/23 21:43 MCH 30.6 pg (27.0-31.0) 09/29/23 21:43 MCHC 33.3 g/dL (32.0-36.0) 09/29/23 21:43 RDW 11.9 % (12.0-15.0) L 09/29/23 21:43 Plt Count 222 10^3/uL (130-450) 09/29/23 21:43 MPV 8.6 fL (7.9-10.8) 09/29/23 21:43 Neut # (Auto) 4.7 10^3/uL (1.5-6.6) 09/29/23 21:43 Lymph # (Auto) 1.2 10^3/uL (1.5-3.5) L 09/29/23 21:43 [place] # (Auto) 0.8 10^3/uL (0.0-1.0) 09/29/23 21:43 Eos # (Auto) 0.0 10^3/uL (0.0-0.7) 09/29/23 21:43 Baso # (Auto) 0.0 10^3/uL (0.0-0.1) 09/29/23 21:43 Absolute Nucleated RBC 0.00 x10^3/uL 09/29/23 21:43 Nucleated RBC % 0.0 /100WBC 09/29/23 21:43 Sodium 137 mmol/L (135-145) 09/30/23 05:10 Potassium 4.1 mmol/L (3.5-4.5) 09/30/23 05:10 Chloride 105 mmol/L (101-111) 09/30/23 05:10 Carbon Dioxide 25 mmol/L (21-32) 09/30/23 05:10 Anion Gap 7.0 (6-13) 09/30/23 05:10 BUN 8 mg/dL (6-20) 09/30/23 05:10 Creatinine 0.7 mg/dL (0.6-1.3) 09/30/23 05:10 Estimated GFR (MDRD) 85 (>89) L 09/30/23 05:10 Glucose 94 mg/dL (74-104) 09/30/23 05:10 Calcium 10.1 mg/dL (8.5-10.3) 09/30/23 05:10 Phosphorus 2.8 mg/dL (2.5-5.0) 09/29/23 21:43 Magnesium 2.3 mg/dL (1.7-2.3) 09/30/23 05:10 Total Bilirubin 0.6 mg/dL (0.2-1.0) 09/29/23 21:43 AST 17 IU/L (10-42) 09/29/23 21:43 ALT 16 IU/L (10-60) 09/29/23 21:43 Alkaline Phosphatase 80 IU/L (42-121) 09/29/23 21:43 Troponin I High Sens 30.4 ng/L (2.3-14.8) H* 09/30/23 05:10 Total Protein 7.5 g/dL (6.4-8.9) 09/29/23 21:43 Albumin 4.6 g/dL (3.2-5.5) 09/29/23 21:43 Globulin 2.9 g/dL (2.1-4.2) 09/29/23 21:43 Albumin/Globulin Ratio 1.6 (1.0-2.2) 09/29/23 21:43 Lipase 27 U/L (11-82) 09/29/23 21:43 TSH 0.77 uIU/mL (0.34-5.60) 09/30/23 05:10 Nasal Adenovirus (PCR) NOT DETECTED 09/30/23 09:15 Nasal B. parapertussis DNA (PCR) NOT DETECTED 09/30/23 09:15 Nasal Coronavir 229E PCR NOT DETECTED 09/30/23 09:15 Nasal Coronavir HKU1 PCR NOT DETECTED 09/30/23 09:15 Nasal Coronavir NL63 PCR NOT DETECTED 09/30/23 09:15 Nasal Coronavir OC43 PCR NOT DETECTED 09/30/23 09:15 Nasal Enterovir/Rhinovir PCR NOT DETECTED 09/30/23 09:15 Nasal Influenza B PCR NOT DETECTED 09/30/23 09:15 Nasal Influenza A PCR NOT DETECTED 09/30/23 09:15 Nasal Parainfluen 1 PCR NOT DETECTED 09/30/23 09:15 Nasal Parainfluen 2 PCR NOT DETECTED 09/30/23 09:15 Nasal Parainfluen 3 PCR NOT DETECTED 09/30/23 09:15 Nasal Parainfluen 4 PCR NOT DETECTED 09/30/23 09:15 Nasal RSV (PCR) NOT DETECTED 09/30/23 09:15 Nasal B.pertussis DNA PCR NOT DETECTED 09/30/23 09:15 Nasal C.pneumoniae (PCR) NOT DETECTED 09/30/23 09:15 Rojas Human Metapneumo PCR NOT DETECTED 09/30/23 09:15 Nasal M.pneumoniae (PCR) NOT DETECTED 09/30/23 09:15 Nasal SARS-CoV-2 (PCR) DETECTED A 09/30/23 09:15
--- NOTE | 2023-09-30 14:09 | PHARMACY PROGRESS NOTE ---
- Best Possible Medication History Admit Date and Time: 09/29/23 4001 Processed by: Pharmacy Medication History completed: Yes Patient Interview: Pt unable to participate Secondary Source(s): Insurance records As the person ultimately responsible for medication therapy, providers are able to order a medication from an existing home medication list in [facility] via the "Reconcile Routine" prior to Confirmation of that medication by operations support analyst. Such practice is discouraged except when the physician, in their clinical judgment, deems that a medical need exists for a medication without regard to previous use.
[2023-10-01] MEDS: METOPROLOL SUCCINATE 25 MG TABLET PO SCH (09:12)
[2023-10-01] MEDS: SODIUM CHLORIDE FLUSH 0.9% 10 ML SYRINGE IVP SCH (09:13)
[2023-10-01] MEDS: CALCIUM CARBONATE CHEW 500 MG TABLET PO PRN (09:14)
[2023-10-01] MEDS: ENOXAPARIN 40 MG/0.4 ML SYRINGE SUBQ SCH (09:15)
[2023-10-01] MEDS ORDERED: SIMETHICONE CHEW 80 MG TABLET PO PRN (11:35)
--- NOTE | 2023-10-01 11:35 | Discharge Plan ---
Discharge Plan Problem Reviewed?: Yes Disposition: Home, Self Care Condition: Fair Prescriptions: Simethicone [Mylicon] 80 mg PO 0900,1300,1800,2100 PRN #30 tab PRN Reason: Gas Metoprolol Succinate [Toprol Xl] 25 mg PO BID #60 tab Diet: Soft (Eat a bland diet that does not produce gas (omit cabbage-type foods)) Activity Restrictions: Activity as Tolerated Shower Restrictions: No Driving Restrictions: No Health Concerns: You were placed in "Observation status" to monitor your PVCs and V.Tach. As recommended by the Armature Winder, your Toprol XL dose was increased, which has suppressed the V.Tach. You are being discharged now to take this current higher dose of Toprol XL, and a new prescription was sent to your [facility] pharmacy. We also found that you have active COVID infection again, which may have caused irritation to the heart and increased the PVCs and V.Tach. This viral infection is probably what caused your dizziness, because we found that you were dehydrated, and by giving you IV fluids, the dizziness has decreased. Please stay better hydrated to avoid dizziness. Drinking chicken broth is highly recommended. You are being discharged home today and advised to follow standard guidelines for isolation, because of your new COVID infection. You need to rest and recover. You may use medications for symptomatic treatment of a runny nose and stuffy nose (like nasal sprays or oral decongestants), and to handle indigestion (like TUMS). Because of having increased bloating and gas, you should eat a bland diet that is low in crucifers (which produce gas). You may use Simethicone (Gas-X) tablets as well, to help relieve gas. Plan of Treatment: As above. Care Goals: Improvement in symptoms and stabilization are the goals. Assessment: The patient understands and is agreeable with the plan. Additional Instructions or Follow Up instructions: If you have new or worsening palpitation symptoms, call your Armature Winder for advice. If you have new or worsening viral symptoms, call your Primary Care Provider for advice. No Smoking: If you smoke, Please STOP! Call for help. Follow-up with: RODRIGO MARTINEZ ARNP [Primary Care Provider] -
--- NOTE | 2023-10-01 12:00 | DISCHARGE SUMMARY ---
Discharge Summary Discharge Date: 10/01/23 Discharging Provider: Madelaine Malagon mD Primary Care Provider: Pedro Mathew NP Code Status: Attempt Resuscitation Condition at Discharge: Fair Discharge Disposition: 01 Home, Self Care - HPI History of Present Illness: 62 yo F with PMH of Nonsustained Ventricular Tachycardia, GERD presented to the ER with c/o 1 day h/o palpitations, dizziness. Pt has had increased indigestion symptoms x 2 weeks with belching/gas after eating and palpitations with these symptoms. She saw her PCP on Tuesday and they prescribed Omeprazole, but pt would rather take Tums and has been managing her symptoms with Tums PRN. Today, she also had coryza and low-grade fever. Then, she began to have increased frequency and severity with palpitations, accompanied by dizziness/light- headedness/feeling like she might faint if she did not sit down. +chest "heaviness" with palpitations today. No SOB. She has not had dizziness with previous episodes of VTach. The first time she was diagnosed with VTach was when she was wearing a heart monitor; it was picked up and she was asymptomatic. Pt's Outcomes Analyst is at [facility]. She takes Metoprolol XR 12.5 mg PO BID. Pt has had a full normal cardiac workup including MRI, echocardiogram and stress test. She met with the EP physician in July and no intervention was planned. No N/V/D/Dysuria/cough. In the ER, pt has had multiple runs of nonsustained ventricular tachycardia, each 3-5 beats, BP 150/78, HR 86, Na 131, Trop 23.7 EKG: NSR at 80bpm, no STTw changes CXR: NAD Pt was given MagSO4 2 gm IV, Metoprolol 5 mg IV and IVF in the ER. ER Physician D/W with Dr. Montemayor, Outcomes Analyst at [facility], on-call for her Outcomes Analyst; he recommended increasing Metoprolol to 25 mg p.o. BID and admit for Observation. If she continues to have nonsustained ventricular tachycardia overnight, continues to be symptomatic, then call for transfer. - HOSPITAL COURSE Hospital Course: (1) Ventricular tachycardia She described feeling palpitations with dizziness. It was the dizziness that she has not had before, when she got palpitations. Short bursts of V.Tach as well as bigeminy, trigeminy, quadrigeminy were seen here on telem. The ER Physician discussed with Dr. Montemayor, Outcomes Analyst at [facility], on-call for her Outcomes Analyst Dr Patel; he recommended increasing Metoprolol XL from 12.5 BID to 25 mg BID, which was done. He advised watching her on telemetry, in Observation, and advised if she continues to have non-sustained ventricular tachycardia and continues to be symptomatic, then call for transfer. Her troponins ruled her out for [place] and her TSH came back WNL at 0.77. The higher dose of Toprol suppressed her V.Tach. We only saw bigeminy, trigeminy, quadrigeminy. She was discharged home on this higher dose of Toprol-XL. (2) Orthostatic hypotension An orthostatic check was done because of her complaint of dizziness and she was orthostatic. Her IV NS was continued and she got a saline bolus. She then reported her palpitations and dizziness were not as severe as admission, likely because she was re-hydrated. There was no further orthostasis on day of discharge. (3) COVID-19 Because of the coryza, abdominal symptoms and low-grade fever at home, I ordered a respiratory panel and it came back positive for COVID. Droplet isolation was ordered. She had no pneumonia on chest x-ray and no oxygen desaturation, to qualify for Remdesivir. She got Afrin spray prn for her coryza. At discharge, standard isolation procedures were recommended. (4) Hyponatremia Na 131 at admission and was 137 after iv saline hydration (5) Indigestion I suspect this was another symptom of her current COVID infection. Pt requested Tums PRN only for this (6) Gas pain On her last day, she described be bloated and passing alot of gas and having formed stool mixed with watery stool. I suspect this was another symptom of her current COVID infection. Symptomatic management was advised with eating bland food, chicken broth, and using Simethicone as needed. - ALLERGIES Allergies/Adverse Reactions: Allergies Allergy/AdvReac Type Severity Reaction Status Date / Time Penicillins Allergy Hives Verified 09/29/23 21:32 sulfamethoxazole Allergy Unknown Verified 09/29/23 21:32 [From ] trimethoprim [From ] Allergy Unknown Verified 09/29/23 21:32 - MEDICATIONS Home Medications: Ambulatory Orders Medication Instructions Recorded Confirmed Omeprazole Magnesium 20 mg PO DAILY 09/30/23 09/30/23 Metoprolol Succinate [Toprol Xl] 25 mg PO BID #60 tab 10/01/23 Simethicone [Mylicon] 80 mg PO 0900,1300,1800,2100 PRN 10/01/23 #30 tab - PHYSICAL EXAM AT DISCHARGE General Appearance: positive: Mild distress (from abd bloating and nasal congestion.) Eyes Bilateral: positive: Normal inspection, EOMI ENT: positive: ENT inspection nml, No signs of dehydration Neck: positive: Nml inspection, No JVD Respiratory: positive: No respiratory distress Cardiovascular: positive: Regular rate & rhythm Abdomen: positive: Nml bowel sounds, Other (Bloated) Skin: positive: Warm, Dry Extremities: positive: No pedal edema Neurologic/Psychiatric: positive: Oriented x3, Motor nml - LABS Result Diagrams: 09/29/23 21:43 09/30/23 05:10 - FOLLOW UP Follow Up: See PCP for a hospital follow-up visit after discharge. - TIME SPENT Time Spent in Discharge (Minutes): 30
[2023-10-01 12:42] VITALS: BP 122/63; O2SAT 97
== END 2023-10-01 14:30 | disposition home or self-care (01) ==
LOC: ED 21:20 → MS2 23:11
PROVIDERS: ADMIT Internal Medicine; ATTEND Internal Medicine
DX: I47.20 Ventricular tachycardia, unspecified (principal); U07.1 COVID-19; E87.1 Hypo-osmolality and hyponatremia; K30 Functional dyspepsia; E86.0 Dehydration; R00.2 Palpitations; R00.8 Other abnormalities of heart beat; I95.1 Orthostatic hypotension; R14.0 Abdominal distension (gaseous); K21.9 Gastro-esophageal reflux disease without esophagitis; J00 Acute nasopharyngitis [common cold]
CPT/HCPCS: 36415; 36680; 71045; 80048; 80053; 83690; 83735; 84100; 84443; 84484; 85025; 87633; 93005; 96372; 96374; 99284; 99285; A9270; G0378; J1650

== ENCOUNTER 2023-11-25 07:00 | Outpatient (CLI) | payer OTHER | END 2023-11-25 23:59 | disposition home or self-care (01) | LOC: LAB.S 07:00 | PROVIDERS: ATTEND Physician Assistant Medical | DX: N39.0 Urinary tract infection, site not specified (principal) | CPT/HCPCS: 87077; 87086; 87181 ==

== ENCOUNTER 2024-01-01 16:10 | Outpatient (CLI) | payer OTHER | END 2024-01-01 16:11 | disposition short-term general hospital (02) | LOC: EMS 16:10 | DX: I47.20 Ventricular tachycardia, unspecified (principal); I49.3 Ventricular premature depolarization | CPT/HCPCS: A0425; A0429 ==

== ENCOUNTER 2024-06-21 12:21 | Outpatient (CLI) | payer OTHER ==
[2024-06-21 17:59] LABS: ALBUMIN 4.3 g/dL (3.2-5.5)
[2024-06-21 18:05] LABS: BILIRUBIN,DIRECT 0.12 mg/dL (0.03-0.18); BILIRUBIN,TOTAL 0.4 mg/dL (0.2-1.0); CREATININE 0.6 mg/dL (0.6-1.3); TOTAL PROTEIN 7.4 g/dL (6.4-8.9)
== END 2024-06-21 12:22 | disposition home or self-care (01) ==
LOC: LAB.N 12:21
PROVIDERS: ATTEND Physician Assistant Medical
DX: B35.1 Tinea unguium (principal)
CPT/HCPCS: 36415; 80076; 82565; 84520